=== PATIENT | male | born 1980 | race Caucasian/White ===

== ENCOUNTER 2016-09-12 19:31 | Emergency (ER) | payer SELFPAY ==
[~2016-09-12] VITALS: Ht 165.1 cm; Wt 55.0 kg
[~2016-09-12 19:31] MED LIST: CHLO25 PO; LEXA20TA PO; LISI40TA PO
[2016-09-12 19:34] VITALS: BP 216/106; PULSE 90; RESP 20; TEMP 98; O2SAT 96
[2016-09-12] MEDS ORDERED: LISI40TA PO ×2 (19:54→21:48)
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
[2016-09-12 20:23] VITALS: BP 180/96; PULSE 83; RESP 17; O2SAT 96
[2016-09-12] MEDS ORDERED: hydrALAZINE HCL 20 MG/ML VIAL IV PUSH ONE (20:30)
--- NOTE | 2016-09-12 20:34 | RADRPT ---
EXAM DATE/TIME: 09/12/2016 20:26 [facility] COMPARISON: CT BRAIN W/O CONTRAST, November 18, 2015, 14:00. INDICATIONS : Seizures. RADIATION DOSE: 41.73 CTDIvol (mGy) MEDICAL HISTORY : Seizures. SURGICAL HISTORY : None. ENCOUNTER: Initial ACUITY: 1 day PAIN SCALE: 0/10 LOCATION: cranial TECHNIQUE: Multiple contiguous axial images were obtained of the head. Using automated exposure control and adj ustment of the mA and/or kV according to patient size, radiation dose was kept as low as reasonably a chievable to obtain optimal diagnostic quality images. FINDINGS: CEREBRUM: The ventricles are normal for age. No evidence of midline shift, mass lesion, hemorrhage or acute in farction. No extra-axial fluid collections are seen. POSTERIOR FOSSA: The cerebellum and brainstem are intact. The 4th ventricle is midline. The cerebellopontine angle i s unremarkable. EXTRACRANIAL: The visualized portion of the orbits is intact. SKULL: The calvaria is intact. No evidence of skull fracture. CONCLUSION: Normal examination. Fernandez Carlson MD on September 12, 2016 at 20:32 Board Certified Radiologist. This report was verified electronically.
[2016-09-12 20:36] VITALS: BP 175/103; PULSE 87; RESP 17; O2SAT 99
[2016-09-12 20:39] LABS: AUTOMATED NEUTROPHIL # 5.1 TH/MM3 (1.8-7.7); BASOPHIL % 0.4 % (0.0-2.0); EOSINOPHIL % 0.3 % (0.0-4.0); HEMATOCRIT 40.6 % (39.0-51.0); HEMO FLAGS DIFF FINAL; LYMPHOCYTE # 1.1 TH/MM3 (1.0-4.8); MEAN CELL VOLUME 100.1 FL (80.0-100.0); MEAN CORPUSCULAR HEMOGLOBIN 34.4 PG (27.0-34.0); MEAN CORPUSCULAR HGB CONC 34.4 % (32.0-36.0); MONO % 11.1 % (0.0-8.0); NEUT % 73.2 % (16.0-70.0); PLATELET COUNT 108 TH/MM3 (150-450); RED BLOOD COUNT 4.06 MIL/MM3 (4.50-5.90); RED CELL DISTRIBUTION WIDTH 13.5 % (11.6-17.2)
[2016-09-12 20:50] LABS: APTT (PATIENT) 26.1 SEC (24.3-30.1); INTERNATIONAL NORMALIZED RATIO 0.9 RATIO; PROTHROMBIN TIME - PATIENT 10.1 SEC (9.8-11.6)
[2016-09-12 21:03] VITALS: BP 154/108; PULSE 97; RESP 18; O2SAT 99
[2016-09-12 21:05] LABS: BICARBONATE 30.5 MEQ/L (21.0-32.0); MAGNESIUM 1.5 MG/DL (1.5-2.5); POTASSIUM 3.9 MEQ/L (3.5-5.1)
[2016-09-12] MEDS ORDERED: LORazepam 2 MG/ML VIAL IV PUSH ONE (21:15)
[2016-09-12] MEDS ORDERED: THIAMINE INJ 100 MG in SODIUM CHLORIDE 0.9% INJ 100 ML IV ONE (21:45)
[2016-09-12] MEDS ORDERED: CHLO25CA2 PO (21:51)
[2016-09-12] MEDS ORDERED: MAGNESIUM SULFATE 1 GM PREMIX 100 ML IV ONE (22:00)
[2016-09-12 22:50] VITALS: BP 158/84
== END 2016-09-13 00:08 | disposition home or self-care (01) ==
LOC: NEPC 19:31 → NEPI 09-13 00:08
DX: F10.20 Alcohol dependence, uncomplicated (principal); F14.920 Cocaine use, unspecified with intoxication, uncomplicated; R56.9 Unspecified convulsions; I10 Essential (primary) hypertension; Y90.1 Blood alcohol level of 20-39 mg/100 ml; Z72.0 Tobacco use
CPT/HCPCS: 70450; 80048; 80320; 83735; 85025; 85610; 85730; 96365; 96367; 96375; 99284; J0360; J2060; J3411; J3475

== ENCOUNTER 2017-01-16 18:23 | Emergency (ER) | payer SELFPAY ==
[~2017-01-16] VITALS: Ht 167.6 cm; Wt 65.0 kg
[~2017-01-16 18:23] MED LIST changes: -CHLO25 PO; +CHLO25CA2 PO; -LEXA20TA PO
[2017-01-16 18:24] VITALS: BP 159/96; PULSE 95; RESP 16; TEMP 97.6; O2SAT 97
--- NOTE | 2017-01-16 18:47 | PD ---
HPI Chief Complaint: Injury Time Seen by Provider: 18:43 Travel History International Travel<30 days: No Contact w/Intl Traveler<30days: No Traveled to known affect area: No History of Present Illness HPI 36-year-old male presents emergency Department with complaint of an ingrown toenail to his left great toe that has been painful for about a month. Denies swelling, drainage from the site. Denies paresthesias, loss of sensation to the affected toe. Denies fever, vomiting. Has not taken any medications or treatments to relieve the symptoms. Pain is worse with pressure and walking. No known allergies. Has no other medical complaints. No other modifying factors or associated signs and symptoms. History Past Medical Histgory Hx Cancer: No Hx Chemotherapy: No Hx Radiation Therapy: No Social History Alcohol Use: Yes (DAILY, HEAVY) Tobacco Use: Yes Allergies-Medications (Allergen,Severity, Reaction): Coded Allergies: No Known Allergies (Verified , 01/16/17) Reported Meds & Prescriptions Reported Meds & Active Scripts Active Chlordiazepoxide (Chlordiazepoxide HCl) 25 Mg Cap 25 Mg PO BID PRN 5 Days Lisinopril 40 Mg Tab 40 Mg PO DAILY Reported Lisinopril 40 Mg Tab 40 Mg PO DAILY Review of Systems Except as stated in HPI: all other systems reviewed are Neg Physical Exam Narrative GENERAL: Well-nourished, well-developed male patient, in no acute distress SKIN: Warm and dry. Left great toe without erythema, edema, drainage; with tenderness on palpation to the medial aspect of the nail bed; feet are clean and well kept; no signs of infection. Sensory intact; the center second cap refill. Left lower extreme supplement has a 2+ pedal pulse and sensory intact and without erythema or edema. HEAD: Atraumatic. Normocephalic. EYES: Pupils equal and round. No scleral icterus. No injection or drainage. ENT: Mucosa pink and moist. Airway patent. NECK: Trachea midline. CARDIOVASCULAR: Regular rate. RESPIRATORY: No accessory muscle use. GASTROINTESTINAL: Flat. MUSCULOSKELETAL: No obvious deformities. No clubbing. No cyanosis. No edema. NEUROLOGICAL: Awake and alert. Oriented 3. No obvious cranial nerve deficits. Motor grossly within normal limits. Normal speech. PSYCHIATRIC: Appropriate mood and affect; insight and judgment normal. Data Data Last Documented VS Vital Signs Date Time Temp Pulse Resp B/P Pulse Ox O2 Delivery O2 Flow Rate FiO2 01/16/17 18:24 97.6 95 16 159/96 97 Room Air MDM Medical Screen Exam Complete: Yes Emergency Medical Condition: No Differential Diagnosis Ingrown toenail, infected ingrown toenail, paronychia Narrative Course 36-year-old male with possible ingrown toenail to the left great toe. There are no signs of infection and the toenail is fully intact. Instructed patient to follow up with primary care and podiatry. Vital signs are stable and the patient is stable for outpatient follow-up and treatment. The patient has no urgent or emergent medical complaints. There is no emergent or urgent medical need at this time. I instructed the patient to follow up with their primary care provider. A medical screening exam was performed: At the time of evaluation the presenting medical condition was determined not to be of an emergent nature. The patient was given the option of receiving additional care, but declined. Patient was given options for additional community resources from which to obtain care. The Patient Has Been advised to seek medical attention for their presenting complaint. The patient has been advised to return to the ER at any time if an emergent condition develops. Primary Impression: Encounter for medical screening examination Condition: Stable Becki Gutierrez GLUER MACHINE OPERATOR January 16, 2017 18:47
== END 2017-01-16 18:49 | disposition left against medical advice (07) ==
LOC: NEPK 18:23
DX: L60.0 Ingrowing nail (principal)
CPT/HCPCS: 99281

== ENCOUNTER 2017-05-14 20:23 | Emergency (ER) | payer SELFPAY ==
[~2017-05-14] VITALS: Ht 167.6 cm; Wt 66.0 kg
[2017-05-14 20:34] VITALS: BP 207/125; PULSE 123; RESP 30
[2017-05-14] MEDS ORDERED: LIDOCAINE 1%/EPINEPHrine 1:100,000 SOLN 20 ML VIAL INFIL ONE (21:00)
[2017-05-14] MEDS ORDERED: SODIUM CHLORIDE 0.9% FLUSH 10 ML FLUSH IVF PRN (21:00)
[2017-05-14] MEDS ORDERED: LORazepam 2 MG/ML VIAL IVS ONE (21:00)
[2017-05-14 21:21] VITALS: TEMP 98.2
--- NOTE | 2017-05-14 21:24 | RADRPT ---
EXAM DATE/TIME: 05/14/2017 21:07 [facility] COMPARISON: CT BRAIN W/O CONTRAST, September 12, 2016, 20:26. INDICATIONS : Possible seizure. RADIATION DOSE: 56.77 CTDIvol (mGy) MEDICAL HISTORY : Hypertension. Seizures. SURGICAL HISTORY : None. ENCOUNTER: Initial ACUITY: 1 day PAIN SCALE: 3/10 LOCATION: cranial TECHNIQUE: Multiple contiguous axial images were obtained of the head. Using automated exposure control and adj ustment of the mA and/or kV according to patient size, radiation dose was kept as low as reasonably a chievable to obtain optimal diagnostic quality images. DICOM format image data is available electro nically for review and comparison. FINDINGS: CEREBRUM: The ventricles are normal for age. No evidence of midline shift, mass lesion, hemorrhage or acute in farction. No extra-axial fluid collections are seen. POSTERIOR FOSSA: The cerebellum and brainstem are intact. The 4th ventricle is midline. The cerebellopontine angle i s unremarkable. EXTRACRANIAL: The visualized portion of the orbits is intact. SKULL: The calvaria is intact. No evidence of skull fracture. CONCLUSION: No acute disease. Aydin Riojas MD on May 14, 2017 at 21:19 Board Certified Radiologist. This report was verified electronically.
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
--- NOTE | 2017-05-14 21:29 | RADRPT ---
EXAM DATE/TIME: 05/14/2017 21:09 [facility] COMPARISON: No previous studies available for comparison. INDICATIONS : Possible seizure. RADIATION DOSE: 31.05 CTDIvol (mGy) MEDICAL HISTORY : Hypertension. Seizures. SURGICAL HISTORY : None. ENCOUNTER: Initial ACUITY: 1 day PAIN SCALE: 0/10 LOCATION: neck TECHNIQUE: Volumetric scanning of the cervical spine was performed. Multiplanar reconstructions in the sagittal, coronal and oblique axial planes were performed. Using automated exposure control and adjustment o f the mA and/or kV according to patient size, radiation dose was kept as low as reasonably achievable to obtain optimal diagnostic quality images. DICOM format image data is available electronically f or review and comparison. FINDINGS: VERTEBRAE: Normal vertebral body height. ALIGNMENT: No evidence of subluxation. C2-C3: The bony spinal canal is normal in size. No evidence of disc bulge or herniation. The neural forami na are bilaterally patent. C3-C4: The bony spinal canal is normal in size. No evidence of disc bulge or herniation. The neural forami na are bilaterally patent. C4-C5: Mild bulging of the disc annulus. C5-C6: The bony spinal canal is normal in size. No evidence of disc bulge or herniation. The neural forami na are bilaterally patent. C6-C7: The bony spinal canal is normal in size. No evidence of disc bulge or herniation. The neural forami na are bilaterally patent. C7-T1: The bony spinal canal is normal in size. No evidence of disc bulge or herniation. The neural forami na are bilaterally patent. CONCLUSION: Intact cervical spine. Early degenerative changes at C4/C5. Jhonatan Terrell MD on May 14, 2017 at 21:26 Board Certified Radiologist. This report was verified electronically.
[2017-05-14] MEDS ORDERED: LIDOCAINE 2%/EPINEPHrine 1:100,000 30ML MDV INFIL ONE (21:30)
[2017-05-14] MEDS ORDERED: LIDOCAINE 2%/EPINEPHrine 1:100,000 20ML MDV ONE (21:31)
[2017-05-14] MEDS ORDERED: DILA30CA PO (21:35)
== END 2017-05-14 23:02 | disposition home or self-care (01) ==
LOC: NEPC 20:23
DX: R56.9 Unspecified convulsions (principal); S01.81XA Laceration without foreign body of other part of head, initial encounter; I10 Essential (primary) hypertension; W18.2XXA Fall in (into) shower or empty bathtub, initial encounter; Y92.002 Bathroom of unspecified non-institutional (private) residence as the place of occurrence of the external cause; Y93.E1 Activity, personal bathing and showering; Z72.0 Tobacco use
CPT/HCPCS: 12011; 70450; 72125; 96374; 99285; J2060

== ENCOUNTER 2017-10-31 13:51 | Emergency (ER) | payer SELFPAY ==
[~2017-10-31] VITALS: Ht 175.3 cm; Wt 80.0 kg
[~2017-10-31 13:51] MED LIST changes: -CHLO25CA2 PO; +DILA30CA PO
[2017-10-31 13:58] VITALS: BP 134/81; PULSE 119; RESP 18; TEMP 97.6
[2017-10-31] MEDS ORDERED: chlordiazePOXIDE 25 MG CAP PO STA (14:11)
[2017-10-31] MEDS ORDERED: SODIUM CHLORIDE 0.9% FLUSH 10 ML FLUSH IVF PRN (14:15)
--- NOTE | 2017-10-31 14:23 | PD ---
HPI Chief Complaint: Seizure Time Seen by Provider: 14:00 Travel History International Travel<30 days: No Contact w/Intl Traveler<30days: No Traveled to known affect area: No History of Present Illness HPI This patient complains of seizure. He has history of alcohol related seizures. His last seizure was 7 months ago. 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 He denies headache or injury. He states that he drinks at least 4 drinks daily but sometimes more. Has history of cocaine use but none last couple of months. He denies ever using IV drugs. Severity is moderate. No alleviating factors. Symptoms exacerbated by alcohol and drug use. No tongue injury or urinary incontinence. No people that witnessed this event are here to question. PFSH Past Medical History Hx Anticoagulant Therapy: No Arthritis: No Asthma: No Autoimmune Disease: No Blood Disorders: No Heart Rhythm Problems: No Cancer: No Cardiovascular Problems: Yes (hYPERTENTION) High Cholesterol: No Chemotherapy: No Chest Pain: No Congestive Heart Failure: No COPD: No Cerebrovascular Accident: No Diabetes: No Diminished Hearing: No Endocrine: No Gastrointestinal Disorders: No GERD: No Glaucoma: No Genitourinary: No Headaches: No Hepatitis: No Hiatal Hernia: No Hypertension: Yes Immune Disorder: No Kidney Stones: No Musculoskeletal: No Neurologic: No Psychiatric: No Respiratory: No Immunizations Current: Yes Myocardial Infarction: No Radiation Therapy: No Renal Failure: No Seizures: Yes (withdrawal) Sickle Cell Disease: No Sleep Apnea: No Thyroid Disease: No Ulcer: No ?: Not Past Surgical History Abdominal Surgery: No AICD: No Cardiac Surgery: No Ear Surgery: No Endocrine Surgery: No Eye Surgery: No Genitourinary Surgery: No Gynecologic Surgery: No Joint Replacement: No Neurologic Surgery: No Oral Surgery: No Pacemaker: No Thoracic Surgery: Yes (CHEST TUBE) Other Surgery: Yes (CHEST TUBE FOR SPONT. PNEMOTHORAX 2004) Social History Alcohol Use: Yes (DAILY, HEAVY) Tobacco Use: Yes (1 PPD) Substance Use: Yes (COCAINE ) Allergies-Medications (Allergen,Severity, Reaction): Coded Allergies: No Known Allergies (Verified , 01/16/17) Reported Meds & Prescriptions Reported Meds & Active Scripts Active Chlordiazepoxide HCl 25 Mg Capsule 25 Mg PO Q8HR PRN Lisinopril 10 Mg Tab 10 Mg PO DAILY Review of Systems General / Constitutional: No: Fever Eyes: No: Visual changes HENT: No: Headaches Cardiovascular: No: Chest Pain or Discomfort Respiratory: No: Shortness of Breath Gastrointestinal: No: Abdominal Pain Genitourinary: No: Dysuria Musculoskeletal: No: Pain Skin: No Rash Neurologic: Positive: Seizures, No: Weakness Psychiatric: Positive: Substance Abuse, No: Depression Endocrine: No: Polydipsia Hematologic/Lymphatic: No: Easy Bruising Physical Exam Narrative GENERAL: Well-nourished, well-developed patient in no apparent distress. SKIN: Focused skin assessment reveals no rash and nodules. Skin is Warm and dry. HEAD: Atraumatic. Normocephalic. EYES: Pupils equal and round. No scleral icterus. No injection or drainage. ENT: No nasal bleeding or discharge. Mucous membranes pink and moist. No tongue injury NECK: Trachea midline. No JVD. CARDIOVASCULAR: Regular rate and rhythm. No murmur appreciated. RESPIRATORY: No accessory muscle use. Clear to auscultation. Breath sounds equal bilaterally. GASTROINTESTINAL: Abdomen soft, non-tender, nondistended. Hepatic and splenic margins not palpable. MUSCULOSKELETAL: No obvious deformities. No clubbing. No cyanosis. No edema. NEUROLOGICAL: Awake and alert. No obvious cranial nerve deficits. Motor grossly within normal limits. Normal speech. PSYCHIATRIC: Appropriate mood and affect; insight and judgment seems a bit weak given his seizures and continues substance abuse . Data Data Last Documented VS Vital Signs Date Time Temp Pulse Resp B/P (MAP) Pulse Ox O2 Delivery O2 Flow Rate FiO2 10/31/17 13:58 97.6 119 18 134/81 (98) Orders Orders Complete Blood Count With Diff (10/31/17 14:11) Basic Metabolic Panel (Bmp) (10/31/17 14:11) Alcohol (Ethanol) (10/31/17 14:11) Blood Glucose (10/31/17 14:11) Ecg Monitoring (10/31/17 14:11) Iv Access Insert/Monitor (10/31/17 14:11) Oximetry (10/31/17 14:11) Sodium Chloride 0.9% Flush (Ns Flush) (10/31/17 14:15) Chlordiazepoxide (Librium) (10/31/17 14:11) Sodium Chlor 0.9% 1000 Ml Inj (Ns 1000 M (10/31/17 15:15) Arterial Blood Gas (Abg) (10/31/17 ) Labs Laboratory Tests Test 10/31/17 14:20 10/31/17 15:21 White Blood Count 5.8 TH/MM3 Red Blood Count 3.91 MIL/MM3 Hemoglobin 13.5 GM/DL Hematocrit 40.5 % Mean Corpuscular Volume 103.5 FL Mean Corpuscular Hemoglobin 34.6 PG Mean Corpuscular Hemoglobin Concent 33.4 % Red Cell Distribution Width 13.8 % Platelet Count 115 TH/MM3 Mean Platelet Volume 9.1 FL Neutrophils (%) (Auto) 46.8 % Lymphocytes (%) (Auto) 39.2 % Monocytes (%) (Auto) 11.9 % Eosinophils (%) (Auto) 1.1 % Basophils (%) (Auto) 1.0 % Neutrophils # (Auto) 2.7 TH/MM3 Lymphocytes # (Auto) 2.3 TH/MM3 Monocytes # (Auto) 0.7 TH/MM3 Eosinophils # (Auto) 0.1 TH/MM3 Basophils # (Auto) 0.1 TH/MM3 CBC Comment DIFF FINAL Differential Comment Blood Urea Nitrogen 6 MG/DL Creatinine 0.84 MG/DL Random Glucose 112 MG/DL Calcium Level 9.8 MG/DL Sodium Level 133 MEQ/L Potassium Level 3.7 MEQ/L Chloride Level 96 MEQ/L Carbon Dioxide Level 12.4 MEQ/L Anion Gap 25 MEQ/L Estimat Glomerular Filtration Rate 102 ML/MIN Ethyl Alcohol Level 41 MG/DL Blood Gas Puncture Site LT RADIAL Blood Gas Patient Temperature 98.6 Blood Gas HCO3 19 mmol/L Blood Gas Base Excess -5.6 mmol/L Blood Gas Oxygen Saturation 93 % Arterial Blood pH 7.36 Arterial Blood Partial Pressure CO2 34 mmHg Arterial Blood Partial Pressure O2 86 mmHG Arterial Blood Oxygen Content 16.7 Vol % Arterial Blood Carboxyhemoglobin 2.1 % Arterial Blood Methemoglobin 1.0 % Blood Gas Hemoglobin 12.8 G/DL Oxygen Delivery Device ROOM AIR Blood Gas Inspired Oxygen 21 % [facility] Medical Decision Making Medical Screen Exam Complete: Yes Emergency Medical Condition: Yes Medical Record Reviewed: Yes Differential Diagnosis Alcohol withdrawal seizure, breakthrough seizure, tremor, anxiety Narrative Course I have reviewed the patient's electronic medical record. Patient was seen here for seizure 7 months ago Patient does not have neurologic deficit. He seems rather alert and not particularly postictal Unclear if he had a true seizure or not I gave him a dose of Librium 50 mg oral Of note, his pupils are slightly asymmetric. The patient says that he had a head injury in the past which ever since that time he is had irregular pupils and this is not something new He does not have headache CBC is normal Metabolic profile shows decreased bicarbonate Alcohol is 41 Going to observe him for while. Initial suspicion is alcohol withdrawal seizure versus vasovagal episode versus some atypical anxiety event On recheck he feels fine. He has had no symptoms while here I did an ABG given his low bicarbonate on metabolic profile. An ABG is at 18 and pH is 7.36 Likely this is alcohol withdrawal. But it is mild and I wrote him some Librium to use as needed Warned him about sedation Discuss long-term weaning He does not sound particularly interested in going to alcohol rehabilitation at this time Diagnosis Primary Impression: Alcohol withdrawal seizure Qualified Codes: F10.230 - Alcohol dependence with withdrawal, uncomplicated Additional Instructions: The patient was advised to follow up with their physician and return if they worsen. The patient was warned about potential sedation for the medications they will receive on prescription. Consider [facility] alcohol rehabilitation services Med/Other Pt SpecificInfo: Prescription(s) given Scripts Chlordiazepoxide HCl (Chlordiazepoxide HCl) 25 Mg Capsule 25 MG PO Q8HR Y for WITHDRAWAL, #10 Prov: Rasta Rosado MD 10/31/17 Lisinopril (Lisinopril) 10 Mg Tab 10 MG PO DAILY, #30 TAB 0 Refills Prov: Rasta Rosado MD 10/31/17 Disposition: 01 DISCHARGE HOME Condition: Stable Rasta Rosado MD Oct 31, 2017 14:23
[2017-10-31 14:35] LABS: AUTOMATED NEUTROPHIL # 2.7 TH/MM3 (1.8-7.7); BASOPHIL # 0.1 TH/MM3 (0-0.2); EOSINOPHIL # 0.1 TH/MM3 (0-0.4); EOSINOPHIL % 1.1 % (0.0-4.0); HEMATOCRIT 40.5 % (39.0-51.0); HEMOGLOBIN 13.5 GM/DL (13.0-17.0); LYMPH % 39.2 % (9.0-44.0); LYMPHOCYTE # 2.3 TH/MM3 (1.0-4.8); MEAN CELL VOLUME 103.5 FL (80.0-100.0); MEAN CORPUSCULAR HEMOGLOBIN 34.6 PG (27.0-34.0); MEAN CORPUSCULAR HGB CONC 33.4 % (32.0-36.0); MEAN PLATELET VOLUME 9.1 FL (7.0-11.0); MONO % 11.9 % (0.0-8.0); MONOCYTE # 0.7 TH/MM3 (0-0.9); NEUT % 46.8 % (16.0-70.0); PLATELET COUNT 115 TH/MM3 (150-450); RED BLOOD COUNT 3.91 MIL/MM3 (4.50-5.90); RED CELL DISTRIBUTION WIDTH 13.8 % (11.6-17.2); WHITE BLOOD COUNT 5.8 TH/MM3 (4.0-11.0)
[2017-10-31 14:59] LABS: BICARBONATE 12.4 MEQ/L (21.0-32.0); CALCIUM 9.8 MG/DL (8.5-10.1); CREATININE 0.84 MG/DL (0.60-1.30)
[2017-10-31] MEDS ORDERED: SODIUM CHLOR 0.9% 1000 ML INJ 1,000 ML IV ONE (15:15)
[2017-10-31] MEDS ORDERED: CHLO25CA9 PO (16:44)
[2017-10-31] MEDS ORDERED: LISI10TA3 PO (16:44)
== END 2017-10-31 17:44 | disposition home or self-care (01) ==
LOC: NEPE 13:51
DX: R56.9 Unspecified convulsions (principal); F10.230 Alcohol dependence with withdrawal, uncomplicated; I10 Essential (primary) hypertension; F17.210 Nicotine dependence, cigarettes, uncomplicated
CPT/HCPCS: 36600; 80048; 80307; 82805; 85025; 96360; 99284; J7030